=== PATIENT | female | born 1970 | race Two or more races ===

== ENCOUNTER 2019-05-09 09:48 | Emergency (ER) | payer OTHER ==
[~2019-05-09] VITALS: Ht 160 cm; Wt 55.3 kg
[~2019-05-09 09:48] MED LIST: TOPAMAX25 MG; TOPROL XL25 M1
[2019-05-13] MEDS ORDERED: ZOFRAN8 MG PO (09:40)
== END 2019-05-09 22:03 | disposition home or self-care (01) ==
LOC: ER 09:48
DX: N20.1 Calculus of ureter (principal); R10.11 Right upper quadrant pain

== ENCOUNTER → 2019-05-12 | Emergency (ER) | payer OTHER ==
[~2019-05-12] VITALS: Ht 160 cm; Wt 55.3 kg
[~2019-05-12] MED LIST changes: +ZOFRAN8 MG PO
== END | disposition home or self-care (01) ==
LOC: ER 21:59
DX: N20.1 Calculus of ureter (principal); R10.31 Right lower quadrant pain